=== PATIENT | male | born 1945 | race Caucasian/White ===

== ENCOUNTER 2020-07-06 07:06 | Observation (INO) ==
[2020-07-06] MEDS ORDERED: NITROGLYCERIN 0.4 MG/TAB BTL SL ONE ×2 (07:17→07:18)
[2020-07-06] MEDS ORDERED: NORMAL SALINE 1,000 ML IV ONE (07:17)
--- NOTE | 2020-07-06 07:36 | ERNOTE ---
<Brad Patrick - Last Filed: 07/06/20 07:22> Chest Pain/Cardiac HPI Date of Service: 07/06/20 Time Seen by Provider: 07/06/20 07:08 Source: patient, EMS Exam Limitations: no limitations Immunizations: IMMUNIZATION HX Immunizations Up to Date Yes History of Influenza Vaccine No Hx Pneumococcal Vaccination No Allergies/Adverse Reactions: Allergies Iodinated Contrast Media [Iodinated Contrast Media - IV Dye] Allergy (Mild, Verified 06/24/20 15:19) Hives atorvastatin calcium [From Lipitor] Adverse Reaction (Mild, Verified 06/24/20 15:19) MYALGIAS Home Medications: HOME MEDICATIONS Aspirin [Aspir-Low] 81 mg PO DAILY 09/19/16 [Last Taken 09/27/18] nitroglycerin 0.4 mg sublingual tablet 0.4 mg SL Q5-15M PRN 11/09/17 [Last Taken Unknown] albuterol sulfate 90 mcg/actuation aerosol inhaler 2 inh IH Q4H PRN #18 g 02/06/19 [Last Taken Unknown] allopurinol 300 mg tablet 300 mg PO DAILY #90 tab 12/25/19 [Last Taken Unknown] furosemide 40 mg tablet 40 mg PO DAILY #90 tab 12/25/19 [Last Taken Unknown] levothyroxine 100 mcg tablet 100 mcg PO DAILY #90 tab 12/25/19 [Last Taken Unknown] tadalafil 10 mg tablet 10 mg PO DAILY PRN #10 tab 02/26/20 [Last Taken Unknown] rosuvastatin 20 mg tablet See Rx Instructions .ROUTE .COMPLEX #90 tab 04/15/20 [Last Taken Unknown] Narrative: 74-year-old male woke from sleep with left-sided chest pain radiating to the middle of his back rating to the 7 out of 10 denies any diaphoresis or shortness of breath took a nitroglycerin which is [id number] and had relief of the pain down to 4-5 patient denies any precipitating factors Date (Duration): 07/06/20 Time (Timing): 05:00 Timing: other - Getting better now down to a 4 out of 10 Severity/Quality: moderate Location: substernal Chest Pain Radiation: back Activities at Onset: sleep Modifying Factors - Improves: Present: nitroglycerin, oxygen Modifying Factors - Worsens: Present: exercise Nitro Today/Relief: 0.4 mg x 1, provided by EMS, provided at home, mild relief Aspirin Treatment Today: provided by EMS Associated Symptoms: Present: headache, shortness of breath, diaphoresis, fever/chills Prior Chest Pain/Cardiac Workup: Reports: prior chest pain, other - Stent Review of Systems - Review of Systems Constitutional: Present: no symptoms reported EYE: Present: no symptoms reported ENT: Present: no symptoms reported Respiratory: Present: no symptoms reported Cardiology: Present: chest pain Gastrointestinal/Abdominal: Present: no symptoms reported, nausea, vomiting, eating less Genitourinary: Present: no symptoms reported Musculoskeletal: Present: no symptoms reported Skin: Present: no symptoms reported Neurological: Present: no symptoms reported, dizziness/light-headedness, tingling Endocrine: Present: increased thirst, unexplained weight gain Hematologic/Lymphatic: Present: no symptoms reported All Other Systems: All systems neg except as marked Medical History (Last Reviewed 07/06/20 @ 07:28 by Brad Patrick MD) Hyperlipidemia Onset Date: Unknown Hypothyroidism (acquired) Onset Date: Unknown Obstructive sleep apnea Onset Date: Unknown History of diverticulitis Onset Date: ~2016 Personal history of colonic polyps Onset Date: ~2014 Surgical History: Surgical History (Last Reviewed 07/06/20 @ 07:28 by Brad Patrick MD) History of appendectomy Onset Date: ~1976 History of arthroscopy of left knee Onset Date: 02/27/08 Dr Simms-ACL History of arthroscopy of left shoulder Onset Date: 05/19/00 Dr Simms History of back surgery Onset Date: ~1978 History of carpal tunnel release of both wrists Onset Date: ~1969 History of cholecystectomy Onset Date: ~1987 lap History of colonoscopy Onset Date: 09/28/18 03/28/02 Kannenberg-normal. 06/06/14 Bagan-tubular adenoma x3, hyperplastic polyp x2. Very redundant colon. Recheck 3 yrs. 09/28/18 Bagan-tubular adenoma x2, hyperplastic polyp x2. Extensive diverticulosis. Recheck 5 yrs. History of heart artery stent Onset Date: 01/01/16 [facility] History of hernia repair Onset Date: ~1969 inguinal-does not remember which side History of spinal fusion Onset Date: Unknown Status post epidural steroid injection Onset Date: 08/09/09 C6-7 history of bilateral cubital tunnel release Onset Date: ~1969 Family History: Family History (Last Reviewed 06/24/20 @ 15:19 by Vivian Randhawa CMA) Father , age 70's-[place] Myocardial infarction CAD (coronary artery disease) Mother Heart disease Pacemaker Cancer breast ca Brother Cancer prostate ca Sister , age 7845-qufqyw-amdlbr of type Cancer unsure of type Social History: (Last Updated 06/25/20 @ 12:40 by Mavis Collins MD) Social History: adopted: No chcf: No Marital status: Legally lives independently: No household members: none number of children: 3 number of grandchildren: 7 caregiver/support person: No current occupational status: retired Highest level of school completed/degree received: some college, no degree Service: No Tobacco: Smoking Status: Former smoker Alcohol: alcohol intake: current alcohol intake frequency: a few times a month Substance Use: substance use type: does not use Dietary Habits: caffeine: Yes Personal Safety: victim of physical abuse: No victim of emotional abuse: No Physical Exam - Physical Exam General Appearance: Present: wd/wn, alert, mild distress Head Exam: Present: normal inspection Eye Exam: Normal inspection: bilateral Ears, Nose, Throat: Present: normal ENT inspection Neck: Present: normal inspection Respiratory: Present: no respiratory distress, no accessory muscle use, chest nontender, lungs clear Cardiovascular/Chest: Present: regular rate, rhythm Gastrointestinal/Abdominal: Present: normal bowel sounds, nontender Back Exam: Present: normal inspection Extremity Exam: Present: normal inspection Neurological Exam: Present: alert, oriented Skin Exam: Present: normal color, warm/dry Lymphatic Exam: Present: no adenopathy Progress - Transfer of Care Physician Sign Out: Brad Patrick Receiving Physician: Albert Scott Pending Results: Labs, X-ray results Expected Disposition: Discharge Plan - Plan Plan: Plan is to discharge to home Departure Clinical Impression: Chest pain, Pulmonary nodule - Departure Disposition: Home self-care Condition: Stable Referrals: Mavis Collins MD [Primary Care Provider] - <Albert Scott - Last Filed: 07/06/20 11:26> Chest Pain/Cardiac HPI Immunizations: IMMUNIZATION HX Immunizations Up to Date Yes History of Influenza Vaccine Yes Hx Pneumococcal Vaccination Yes Medical History (Last Reviewed 07/06/20 @ 07:28 by Brad Patrick MD) Hyperlipidemia Onset Date: Unknown Hypothyroidism (acquired) Onset Date: Unknown Obstructive sleep apnea Onset Date: Unknown History of diverticulitis Onset Date: ~2016 Personal history of colonic polyps Onset Date: ~2014 Surgical History: Surgical History (Last Reviewed 07/06/20 @ 07:28 by Brad Patrick MD) History of appendectomy Onset Date: ~1976 History of arthroscopy of left knee Onset Date: 02/27/08 Dr Simms-ACL History of arthroscopy of left shoulder Onset Date: 05/19/00 Dr Simms History of back surgery Onset Date: ~1978 History of carpal tunnel release of both wrists Onset Date: ~1969 History of cholecystectomy Onset Date: ~1987 lap History of colonoscopy Onset Date: 09/28/18 03/28/02 [facility]annenberg-normal. 06/06/14 Bagan-tubular adenoma x3, hyperplastic polyp x2. Very redundant colon. Recheck 3 yrs. 09/28/18 Bagan-tubular adenoma x2, hyperplastic polyp x2. Extensive diverticulosis. Recheck 5 yrs. History of heart artery stent Onset Date: 01/01/16 [facility] History of hernia repair Onset Date: ~1969 inguinal-does not remember which side History of spinal fusion Onset Date: Unknown Status post epidural steroid injection Onset Date: 08/09/09 C6-7 history of bilateral cubital tunnel release Onset Date: ~1969 Family History: Family History (Last Reviewed 06/24/20 @ 15:19 by Vivian Randhawa CMA) Father , age 70's-[place] Myocardial infarction CAD (coronary artery disease) Mother Heart disease Pacemaker Cancer breast ca Brother Cancer prostate ca Sister , age [id number]-zooutd-yxtann of type Cancer unsure of type Social History: (Last Updated 06/25/20 @ 12:40 by Mavis Collins MD) Social History: adopted: No chcf: No Marital status: Legally lives independently: No household members: none number of children: 3 number of grandchildren: 7 caregiver/support person: No current occupational status: retired Highest level of school completed/degree received: some college, no degree Service: No Tobacco: Smoking Status: Former smoker Alcohol: alcohol intake: current alcohol intake frequency: a few times a month Substance Use: substance use type: does not use Dietary Habits: caffeine: Yes Personal Safety: victim of physical abuse: No victim of emotional abuse: No Progress - Date and Time Seen: Date and Time: 07/06/20 09:10 I spoke with the patient about shift change. I confirmed his history. He indicated that he woke up with some pressure in his chest that went through to his back. He may or may not have gotten much relief with the nitroglycerin at home. He had some relief with the nitroglycerin here. He was subsequently given a GI cocktail without relief. His pain has been increasing. There was concern about an aneurysm. He is unfortunately allergic to IV contrast. Initially the D-dimer was ordered but his pain worsened so he will be getting a CT without contrast. He is D-dimer is come back mildly elevated but good for his age. 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 The second EKG looks like the first. The 3-hour troponin was not elevated. He is better with his third dose of morphine. I spoke with Dr. Armijo who agrees to admit the patient. - Results and Orders Patient's Lab Results:: I have reviewed the patient's lab results. Results and Orders: Laboratory Tests 07/06/20 07/06/20 07/06/20 07:20 07:40 07:40 WBC 7.7 RBC 5.07 Hgb 15.0 Hct 46.1 MCV 90.9 MCH 29.6 MCHC 32.5 RDW 14.4 H Plt Count 192 MPV 10.1 Immature Gran % (Auto) 0.40 Immature Gran # (Auto) 0.03 Neutrophils % 54.3 Lymphocytes % 30.5 Monocytes % 9.9 H Eosinophils % 4.4 H Basophils % 0.5 Nucleated RBC % 0.0 Neutrophils # 4.2 Lymphocytes # 2.36 Monocytes # 0.8 Eosinophils # 0.3 Absolute Basophils 0.0 D-Dimer 0.52 H Sodium 140 Plasma Sodium 140 Potassium 3.8 Chloride 105 Carbon Dioxide 27.4 Anion Gap 11.4 BUN 17 Creatinine 1.34 Est GFR (Non-Af Amer) 55 L BUN/Creatinine Ratio 12.7 Random Glucose 107 Calcium 9.1 Calcium Adj for Albumin 9.4 Total Bilirubin 1.1 AST 34 ALT 34 Alkaline Phosphatase 61 Troponin I Less than 0.017 B-Natriuretic Peptide 66 Total Protein 6.3 Albumin 3.2 L Laboratory Tests 07/06/20 10:46 Troponin I Less than 0.017 - Vital Signs Patient's Vital Signs:: I have reviewed the patient's vital signs. Vital Signs: Vital Signs 07/06/20 07:10 07/06/20 07:34 07/06/20 08:00 Temperature 36.7 C Pulse Rate 61 59 L Respiratory Rate 20 14 Blood Pressure 114/56 121/70 O2 Sat by Pulse Oximetry 92 L 94 95 07/06/20 08:20 07/06/20 08:45 Temperature Pulse Rate 56 L 54 L Respiratory Rate 18 19 Blood Pressure 111/55 112/59 O2 Sat by Pulse Oximetry 97 96 - EKG EKG #2 EKG read: Interp. by me EKG Comments: Sinus bradycardia Rate 54 Left axis deviation Nonspecific ST-T wave changes No significant change from the EKG done earlier today. - X-Ray X-Ray #1 X-Ray: chest Interpretation: Reviewed by me X-ray Comments: Chest Single View *~ Exam Date: 07/06/2020 07:34 Ordering Physician: Brad Patrick MD HISTORY: chest pain,hx of covid pneumonia ONE VIEW CHEST Comparison: NONE Technique: A single portable upright AP view of the chest were obtained. Findings: The cardiac silhouette is borderline in size. The mediastinum and hilum are with in normal limits. The lung ritter are clear. I do not see evidence for a definable infiltrate, effusion or pulmonary edema. IMPRESSION: 1. NO ACUTE CARDIOPULMONARY PROCESS. Electronically signed by Smith Ness M.D.. - CT/Ultrasound CT/Ultrasound Narrative: CTA Aorta~ Exam Date: 07/06/2020 09:14 Ordering Physician: Albert Scott MD HISTORY: chest/back pain UNENHANCED CT SCAN OF THE AORTA COMPARISON: Correlation is made with a prior CT scan the abdomen dated 05/28/2016. Technique: Multiple axial CT images were obtained from the pelvic chest down through the abdomen without use of IV or oral contrast. Sagittal and coronal reconstructions were obtained. Mip images were also obtained. The patient was unable to have IV contrast due to a dye allergy. Individualized dose optimization technique was used for the performed procedure including automated exposure control, adjustment of the mA and/or kV according to patient size and/or the iterative reconstruction technique. Findings: I do not see evidence for axillary adenopathy. There are small lymph nodes in the mediastinum without definable adenopathy. I'm not convinced of hilar adenopathy and this unenhanced study. There is moderate to marked coronary artery calcification. The heart is within normal limits of size. I do not see evidence for significant pericardial effusion. The esophagus is grossly normal. There is mild dependent changes in the posterior lung ritter. I do not see evidence for consolidation, effusion, or pneumothorax. There is a 3.8 mm noncalcified nodule in the anterior aspect of the superior segment of the right lower lobe (series 3 image 79), a 6 mm and 4.8 mm nodule in the right middle lobe (series 3 images 81 and 94). The ascending thoracic aorta measures 4 cm and tapers to 3 cm in the arch. The descending thoracic aorta is not dilated. Dissection cannot be excluded on unenhanced study. The liver is homogeneous in appearance for nonenhanced study does not appear to be enlarged. The patient is status post cholecystectomy. The spleen is of normal size and appears homogeneous for nonenhanced study. The adrenal glands are within normal limits. The pancreas is within normal limits for nonenhanced study. A small pancreatic lesion cannot be totally excluded. I do not see eviden ce for retroperitoneal adenopathy or hematoma. The stomach is grossly normal. The small bowel is of normal caliber. The appendix is tentatively identified and appears normal. There are diverticula within the descending colon without definable diverticulitis. The remaining aspects the colon appears unremarkable. The right renal parenchyma is normal in appearance. Again seen is a 10 cm low- density structure involving the mid-upper pole of the left kidney, which is unchanged from 2017. The remaining left renal parenchyma is normal in appearance. I do not see evidence for nonobstructing calculi or pelvocaliectasis. The abdominal aorta demonstrates a normal taper with minimal arteriosclerotic calcification. I do not see evidence for aneurysm or retroperitoneal hematoma. Dissection cannot be excluded unenhanced study. Bone windows demonstrate no definable acute osseous abnormality. There is diffuse disc space narrowing with varying degrees of degenerative spurring in the endplates. I do not see evidence for compression fracture IMPRESSION: 1. 4 CM ASCENDING THORACIC AORTA, WHICH TAPERS TO 3 CM IN THE ARCH. OTHERWISE, THE REMAINING THORACIC AORTA AND ABDOMINAL AORTA ARE NORMAL IN APPEARANCE. NO EVIDENCE FOR ADJACENT HEMATOMA. 2. 3 NONCALCIFIED NODULES IN THE RIGHT LUNG; THE LARGEST MEASURES 6 MM; FOLLOW- UP PER [employer] CRITER[employer]. 3. 10 CM CYST INVOLVING THE MID-UPPER POLE OF THE LEFT KIDNEY, UNCHANGED. [employer] 2017 GUIDELINES FOR MANAGEMENT OF INCIDENTALLY DETECTED PULMONARY NODULES IN ADULTS FOR SOLID NODULES Single Nodule For Low Risk: < 6 mm: No routine follow-up. 6-8 mm: CT at 6-12 months, then consider CT at 18-24 months. > 8 mm: Consider CT, PET CT, or tissue sampling at 3 months. For High Risk: < 6 mm: Optional CT at 12 months, for patient with suspicious nodule morphology, upper lobe location, or both. 6-8 mm: CT at 6-12 months, then consider CT at 18-24 months. > 8 mm: Consider CT, PET CT, or tissue sampling at 3 months. Multiple Nodules (use most suspicious nodule as guide to management) For Low Risk: < 6 mm: No routine follow-up. 6-8 mm: CT at 3-6 months, then consider CT at 18-24 months. > 8 mm: CT at 3-6 months, then consider CT at 18-24 months. For High Risk: < 6 mm: Optional CT at 12 months, for patient with suspicious nodule morphology, upper lobe location, or both. 6-8 mm: CT at 3-6 months, then consider CT at 18-24 months. > 8 mm: CT at 3-6 months, then consider CT at 18-24 months. Note: - Low Risk = young age, less smoking, smaller nodule size, regular margins, and location in an area other than the upper lobe. - High Risk = older age, heavy smoking, larger nodule size, irregular or spiculated margins, and upper lobe location. Presence of emphysema or fibrosis is an independent risk factor for malignancy. Note: These guidelines do NOT apply to patients younger than 35 years, patients undergoing lung cancer screening, patients with immunosuppression, or patients with known or suspected primary cancer. Electronically signed by Smith Ness M.D..
[2020-07-06 07:48] LABS: Hematocrit 46.1 % (42.0-52.0); Mean Cell Volume 90.9 fl (78-100); Mean Corpuscular Hemoglobin 29.6 pg (27-31); Mean Corpuscular Hgb Conc 32.5 g/dl (32-36); Mean Platelet Volume 10.1 fl (8-11.3); Neutrophil # 4.2 K/mm3 (1.3-6.0); Neutrophil % 54.3 % (42-75.0); Platelet Count 192 K/mm3 (150-450); Red Blood Count 5.07 M/mm3 (4.7-6.0); Red Cell Distribution Width 14.4 % (11.5-14.0); White Blood Count 7.7 K/mm3 (4.0-10.5)
[2020-07-06] MEDS ORDERED: LIDOCAINE HCL 15 ML UDC MM ONE (07:59)
[2020-07-06] MEDS ORDERED: MAG HYDROX/ALUMINUM HYD/SIMETH 30 ML UDC PO ONE (07:59)
[2020-07-06 08:06] LABS: ALT 34 U/L (19-67); AST 34 U/L (0-48); Albumin * 3.2 gm/dl (3.4-5.0); Alkaline Phosphatase * 61 U/L (50-170); Anion Gap 11.4 mmol/L (6.8-13.8); BNP * 66 pg/mL (5-350); BUN/Creatinine Ratio 12.7 (9.0-21.6); Bilirubin, Total 1.1 mg/dL (0.0-1.1); Blood Urea Nitrogen 17 mg/dL (6-23); Ca. Corrected For Albumin 9.4 mg/dL (8.4-10.2); Calcium * 9.1 mg/dL (7.9-10.9); Carbon Dioxide 27.4 mmol/L (24-32.6); Chloride 105 mmol/L (97-106); Glucose * 107 mg/dL (70-110); Potassium 3.8 mmol/L (3.4-4.6); Sodium 140 mmol/L (132-142); Total Protein 6.3 gm/dL (6.2-8.2)
[2020-07-06 08:07] LABS: Troponin I Less than 0.017 ng/mL (0.00-0.10)
[2020-07-06] MEDS ORDERED: MORPHINE SULFATE 4 MG/ML SYRG IV ONE ×3 (08:33→10:22)
[2020-07-06] MEDS ORDERED: ONDANSETRON HCL/PF 2 MG/ML VIAL IV ONE (08:33)
[2020-07-06] MEDS ORDERED: NITROGLYCERIN 0.4 MG/TAB BTL SL PRN (12:04)
[2020-07-06] MEDS ORDERED: ALBUTEROL SULFATE 2.5 MG/0.5 ML VIAL.NEB IH PRN (12:04)
[2020-07-06] MEDS: ENOXAPARIN SODIUM 40 MG/0.4 ML SYRG SC SCH (12:43)
[2020-07-06] MEDS ORDERED: ONDANSETRON HCL/PF 2 MG/ML VIAL ONE (14:07)
[2020-07-06] MEDS: ONDANSETRON HCL/PF 2 MG/ML VIAL IV PRN ×2 (14:08→19:04)
--- NOTE | 2020-07-06 18:37 | HP ---
Chief Complaint - Chief Complaint Date of Service: 07/06/20 Time of Service: 18:22 Chief Complaint: Chest pain, history of cardiac stent History of Present Illness: 74-year-old male with medical history of hyperlipidemia, hypothyroidism, obstru ctive sleep apnea, and coronary artery disease with subsequent 1 stent placement roughly 4 years ago presented to the hospital with acute onset chest pain that was noticeably woke this morning. Pain initially was 7 out of 10, took a-year-old nitroglycerin from home which did not improve his pain. Came to the ER where he received another dose of nitroglycerin and he thought it might benefit him some. Initial laboratory work-up unremarkable including 2 - troponin I's. EKG showed nonspecific mild T wave flattening unchanged when repeated twice. 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 Patient back pain persisted and radiated to his back, CTA of the aorta was obtained which did not show any leaking aneurysms or no evidence of adjacent hematoma. Patient was allergic to contrast so and so this was not the best that he. ER physician thought it best that he be observed overnight due to his cardiac history as well as his pain th at radiated to his back. Patient much better in the room this morning aside from some nausea. When reevaluated this evening patient was still having some chest pain that he rated as a 3 out of 10, repeat troponin I ordered. Otherwise his vital signs have been much improved including a regular heart rate that was initially bradycardic and mildly elevated blood pressure. Patient was also requiring oxygen initially but has been since transitioned to room air and is satting 97%. Lovenox was ordered for DVT prophylaxis and cardioprotection. Medical History (Last Reviewed 07/06/20 @ 12:28 by Jarocho Lopez RN) COVID-19 Onset Date: ~05/01/20 Hyperlipidemia Onset Date: Unknown Hypothyroidism (acquired) Onset Date: Unknown Obstructive sleep apnea Onset Date: Unknown History of diverticulitis Onset Date: ~2016 Personal history of colonic polyps Onset Date: ~2014 Surgical History: Surgical History (Last Reviewed 07/06/20 @ 12:28 by Jarocho Lopez RN) History of appendectomy Onset Date: ~1976 History of arthroscopy of left knee Onset Date: 02/27/08 Dr Simms[facility] History of arthroscopy of left shoulder Onset Date: 05/19/00 Dr Simms History of back surgery Onset Date: ~1978 History of carpal tunnel release of both wrists Onset Date: ~1969 History of cholecystectomy Onset Date: ~1987 lap History of colonoscopy Onset Date: 09/28/18 03/28/02 [facility]-normal. 06/06/14 [facility]-tubular adenoma x3, hyperplastic polyp x2. Very redundant colon. Recheck 3 yrs. 09/28/18 Bagan-tubular adenoma x2, hyperplastic polyp x2. Extensive diverticulosis. Recheck 5 yrs. History of heart artery stent Onset Date: 01/01/16 [facility] [place] History of hernia repair Onset Date: ~1969 inguinal-does not remember which side History of spinal fusion Onset Date: Unknown Status post epidural steroid injection Onset Date: 08/09/09 C6-7 history of bilateral cubital tunnel release Onset Date: ~1969 Family History: Family History (Last Reviewed 07/06/20 @ 12:28 by Jarocho Lopez RN) Father , age 70's-CT Myocardial infarction CAD (coronary artery disease) Mother Heart disease Pacemaker Cancer breast ca Brother Cancer prostate ca Sister , age [id number]-scalqu of type Cancer unsure of type Social History: (Last Reviewed 07/06/20 @ 12:28 by Jarocho Lopez RN) Social History: adopted: No intermediate: No Marital status: Legally lives independently: No household members: none number of children: 3 number of grandchildren: 7 caregiver/support person: No current occupational status: retired Highest level of school completed/degree received: some college, no degree Service: No Tobacco: Smoking Status: Former smoker Alcohol: alcohol intake: current alcohol intake frequency: a few times a month Substance Use: substance use type: does not use Dietary Habits: caffeine: Yes Personal Safety: victim of physical abuse: No victim of emotional abuse: No Review Of Systems (GEN) - Review of Systems Generalized/Overall Review: Absent: Weakness, Chills, Fever EENTM: Present: No Symptoms Reported Respiratory: Present: Shortness of Breath. Absent: Cough Cardiac: Present: Chest Pain, Edema - Unchanged, chronic. Absent: Palpitations Abdominal: Present: Nausea. Absent: Vomiting Genitourinary: Present: No Symptoms Reported Musculoskeletal: Present: No Symptoms Reported Neurological: Present: No Symptoms Reported Skin: Present: No Symptoms Reported Endocrine: Present: No Symptoms Reported Immunizations: IMMUNIZATION HX Immunizations Up to Date Yes History of Influenza Vaccine Yes Hx Pneumococcal Vaccination Yes Allergies/Adverse Reactions: Allergies Allergy/AdvReac Type Severity Reaction Status Date / Time Iodinated Contrast Media Allergy Mild Hives Verified 07/06/20 12:27 [Iodinated Contrast Media - IV Dye] atorvastatin calcium AdvReac Mild MYALGIAS Verified 07/06/20 12:27 [From Lipitor] Home Medications: HOME MEDICATIONS Aspirin [Aspir-Low] 81 mg PO DAILY 09/19/16 [Last Taken 09/27/18] nitroglycerin 0.4 mg sublingual tablet 0.4 mg SL Q5-15M PRN 11/09/17 [Last Taken Unknown] albuterol sulfate 90 mcg/actuation aerosol inhaler 2 inh IH Q4H PRN #18 g 02/06/19 [Last Taken Unknown] allopurinol 300 mg tablet 300 mg PO DAILY #90 tab 12/25/19 [Last Taken Unknown] furosemide 40 mg tablet 40 mg PO DAILY #90 tab 12/25/19 [Last Taken Unknown] levothyroxine 100 mcg tablet 100 mcg PO DAILY #90 tab 12/25/19 [Last Taken Unknown] tadalafil 10 mg tablet 10 mg PO DAILY PRN #10 tab 02/26/20 [Last Taken Unknown] rosuvastatin 20 mg tablet See Rx Instructions .ROUTE .COMPLEX #90 tab 04/15/20 [Last Taken Unknown] Exam - Exam Vital Signs: Vital Signs - Last Taken Temp 36.5 C 07/06/20 16:00 Pulse 87 07/06/20 16:00 Resp 18 07/06/20 16:00 BP 127/72 07/06/20 16:00 Pulse Ox 97 07/06/20 16:00 Constitutional: Present: Alert, Oriented x3, Cooperative, Mild distress - Chest pain, Elderly, Obese Eye Exam: bilateral eye: normal inspection, EOMI Neck: Present: non-tender, supple Respiratory: Present: lungs clear, normal breath sounds Cardiovascular/Chest: Present: regular rate, rhythm, no murmur Peripheral Pulses: dorsalis-pedis (R): 2+, dorsalis-pedis (L): 2+ Abdomen: Present: soft, nontender, nondistended Skin Exam: Present: normal color, warm/dry, no cyanosis Neurologic: Present: alert, normal mood/affect, oriented x 3 Appearance: Present: appropriate appearance, appropriate insight Eye contact: Present: cooperative, good eye contact Thoughts: Present: normal thought pattern, normal mood /affect Diagnostic Studies: Abnormal Lab Results 07/06/20 07/06/20 07/06/20 Range/Units 07:20 07:40 07:40 RDW 14.4 H (11.5-14.0) % Monocytes % 9.9 H (0.0-9) % Eosinophils % 4.4 H (0.0-3.0) % D-Dimer 0.52 H (0.19-0.49) ugFEU/mL Est GFR (Non-Af Amer) 55 L (60-130) mL/min Albumin 3.2 L (3.4-5.0) gm/dl Laboratory Results WBC 7.7 K/mm3 (4.0-10.5) 07/06/20 07:40 RBC 5.07 M/mm3 (4.7-6.0) 07/06/20 07:40 Hgb 15.0 gm/dL (13.5-18.0) 07/06/20 07:40 Hct 46.1 % (42.0-52.0) 07/06/20 07:40 MCV 90.9 fl (78-100) 07/06/20 07:40 MCH 29.6 pg (27-31) 07/06/20 07:40 MCHC 32.5 g/dl (32-36) 07/06/20 07:40 RDW 14.4 % (11.5-14.0) H 07/06/20 07:40 Plt Count 192 K/mm3 (150-450) 07/06/20 07:40 MPV 10.1 fl (8-11.3) 07/06/20 07:40 Immature Gran % (Auto) 0.40 % (0.001-0.429) 07/06/20 07:40 Immature Gran # (Auto) 0.03 K/mm3 (0.000-0.0310) 07/06/20 07:40 Neutrophils % 54.3 % (42-75.0) 07/06/20 07:40 Lymphocytes % 30.5 % (20-51) 07/06/20 07:40 Monocytes % 9.9 % (0.0-9) H 07/06/20 07:40 Eosinophils % 4.4 % (0.0-3.0) H 07/06/20 07:40 Basophils % 0.5 % (0.0-1.0) 07/06/20 07:40 Nucleated RBC % 0.0 k/mm3 (0-1) 07/06/20 07:40 Neutrophils # 4.2 K/mm3 (1.3-6.0) 07/06/20 07:40 Lymphocytes # 2.36 k/mm3 (1.5-3.5) 07/06/20 07:40 Monocytes # 0.8 k/mm3 (0.0-1.0) 07/06/20 07:40 Eosinophils # 0.3 k/mm3 (0.0-0.7) 07/06/20 07:40 Absolute Basophils 0.0 k/mm3 (0.0-0.1) 07/06/20 07:40 D-Dimer 0.52 ugFEU/mL (0.19-0.49) H 07/06/20 07:20 Sodium 140 mmol/L (132-142) 07/06/20 07:40 Plasma Sodium 140 mmol/L (130-142) 07/06/20 07:40 Potassium 3.8 mmol/L (3.4-4.6) 07/06/20 07:40 Chloride 105 mmol/L (97-106) 07/06/20 07:40 Carbon Dioxide 27.4 mmol/L (24-32.6) 07/06/20 07:40 Anion Gap 11.4 mmol/L (6.8-13.8) 07/06/20 07:40 BUN 17 mg/dL (6-23) 07/06/20 07:40 Creatinine 1.34 mg/dL (0.4-1.4) 07/06/20 07:40 Est GFR (Non-Af Amer) 55 mL/min (60-130) L 07/06/20 07:40 BUN/Creatinine Ratio 12.7 (9.0-21.6) 07/06/20 07:40 Random Glucose 107 mg/dL (70-110) 07/06/20 07:40 Calcium 9.1 mg/dL (7.9-10.9) 07/06/20 07:40 Calcium Adj for Albumin 9.4 mg/dL (8.4-10.2) 07/06/20 07:40 Total Bilirubin 1.1 mg/dL (0.0-1.1) 07/06/20 07:40 AST 34 U/L (0-48) 07/06/20 07:40 ALT 34 U/L (19-67) 07/06/20 07:40 Alkaline Phosphatase 61 U/L (50-170) 07/06/20 07:40 Troponin I Less than 0.017 ng/mL (0.00-0.10) 07/06/20 10:46 B-Natriuretic Peptide 66 pg/mL (5-350) 07/06/20 07:40 Total Protein 6.3 gm/dL (6.2-8.2) 07/06/20 07:40 Albumin 3.2 gm/dl (3.4-5.0) L 07/06/20 07:40 Assessment/Plan - Narrative Narrative: 74-year-old male with nonspecific chest pain, negative cardiac work-up up-to-date was placed in observation to rule out acute coronary syndrome. Patient initially presented with pain at 7 out of 10 that radiated to his back, negative CT of the aorta though contrast was not used. After this morphine, patient had a significant provement in his pain. Patient was brought over and is been monitored for the last 10 hours and has had no acute events and his vital signs are stable. Upon reexamination patient still having chest pain 3 of 10, will repeat troponin one more time. Pain not improved with GI cocktail. Pain not really improved with nitroglycerin. EKGs and troponins have been negative. Vital signs are stable. Unsure the cause of his pain but will keep him here overnight for further evaluation monitoring. Awaiting repeat troponin to make sure there has been no cardiac injury. Patient is comfortable but states he wants to stay overnight for peace of mind. If his troponin comes back negative then likely he will be a ble to go home tomorrow morning Patient is current medications for his hypothyroidism, hyperlipidemia, hypertension restarted. Zofran ordered for his nausea. Lovenox ordered for DVT prophylaxis. Nurse to call questions or concerns. - Assessment/Plan (1) Hypertension Problem: Acute (2) Hyperlipidemia Problem: Acute (3) Hypothyroidism Problem: Acute (4) CAD (coronary artery disease) Problem: Acute (5) Chest pain Problem: Acute
[2020-07-06] MEDS ORDERED: ROSUVASTATIN CALCIUM 20 MG TABLET PO SCH (21:00)
[2020-07-06] MEDS ORDERED: ACETAMINOPHEN 500 MG TABLET PO ONE (23:15)
[2020-07-07] MEDS ORDERED: LEVOTHYROXINE SODIUM 100 MCG TABLET PO SCH (07:00)
[2020-07-07] MEDS ORDERED: ASPIRIN 81 MG TABLET.DR PO SCH (09:00)
[2020-07-07] MEDS ORDERED: FUROSEMIDE 40 MG TABLET PO SCH (09:00)
[2020-07-07] MEDS ORDERED: ALLOPURINOL 300 MG TABLET PO SCH (09:00)
--- NOTE | 2020-07-07 11:44 | DS ---
(1) CAD (coronary artery disease) Problem: Acute (2) Hypertension Problem: Acute (3) Hyperlipidemia Problem: Acute (4) Hypothyroidism Problem: Acute (5) Chest pain Problem: Acute Date of Discharge:: 07/07/20 Hospital Course: 74-year-old male came to the hospital for chest pain that started that morning. Patient with history of coronary artery disease, stent placed roughly 4 years ago. Recently seen cardiac exercise specialist and was taken off Plavix as he was told he no longer needed to do this. Heart check bedtime was unremarkable. Here he had chest pain that started at around 7 out of 10, did not really resolve with nitroglycerin. Now resolved GI cocktail. He did get some morphine in the ER which made his pain better. Initial work-up showed no specific changes in his EKG for ischemic events. Troponins trended out and were negative x4. Kept overnight just due to history of coronary artery disease and cardiac risk. Vi jamar signs been stable since being here. Patient is feeling much better today and is ready go home with close follow-up with his PCP in the next 2 weeks as well as probably return to see Dr. Arnold in the next month or so. No changes were made to his medications. Patient was stable and will continue his current treatment plan. Patient knows to call the hospital or follow with me in my clinic sooner if any changes in his clinical presentation takes place. 45 minutes spent on patient's discharge summary, treatment plan, dictation note, and med reconciliation. Of note patient did have a CTA of his aorta which did not show any leaking aneurysm or aneurysm of note. This was a checkout received from the ER doctor as well. ER doctor's note does state a leaking aneurysm.I think this is more of a dictation error then will was actually meant to be said. Procedures Performed: none Results and Findings: Lab Pending Results 07/06/20 07:20: D-Dimer 0.52 H 07/06/20 07:40: WBC 7.7, RBC 5.07, Hgb 15.0, Hct 46.1, MCV 90.9, MCH 29.6, MCHC 32.5, RDW 14.4 H, Plt Count 192, MPV 10.1, Immature Gran % (Auto) 0.40, Immature Gran # (Auto) 0.03, Neutrophils % 54.3, Lymphocytes % 30.5, Monocytes % 9.9 H, Eosinophils % 4.4 H, Basophils % 0.5, Nucleated RBC % 0.0, Neutrophils # 4.2, Lymphocytes # 2.36, Monocytes # 0.8, Eosinophils # 0.3, Absolute Basophils 0.0 07/06/20 07:40: Sodium 140, Plasma Sodium 140, Potassium 3.8, Chloride 105, Carbon Dioxide 27.4, Anion Gap 11.4, BUN 17, Creatinine 1.34, Est GFR (Non-Af Amer) 55 L, BUN/Creatinine Ratio 12.7, Random Glucose 107, Calcium 9.1, Calcium Adj for Albumin 9.4, Total Bilirubin 1.1, AST 34, ALT 34, Alkaline Phosphatase 61, Troponin I Less than 0.017, B-Natriuretic Peptide 66, Total Protein 6.3, Albumin 3.2 L 07/06/20 10:46: Troponin I Less than 0.017 07/06/20 18:34: Troponin I Less than 0.017 07/07/20 00:28: Troponin I Less than 0.017 Discharge Location: Home Disposition: Home self-care Condition: Stable Discharge Activity: Activity as tolerated Discharge Diet: Low fat/chol Referrals: Mavis Collins MD [Primary Care Provider] - Two Weeks Complete Home Medications List: Complete Home Medication List: Aspirin [Aspir-Low] 81 mg PO DAILY 09/19/16 nitroglycerin 0.4 mg sublingual tablet 0.4 mg SL Q5-15M PRN 11/09/17 albuterol sulfate 90 mcg/actuation aerosol inhaler 2 inh IH Q4H PRN #18 g 02/06/19 allopurinol 300 mg tablet 300 mg PO DAILY #90 tab 12/25/19 furosemide 40 mg tablet 40 mg PO DAILY #90 tab 12/25/19 levothyroxine 100 mcg tablet 100 mcg PO DAILY #90 tab 12/25/19 tadalafil 10 mg tablet 10 mg PO DAILY PRN #10 tab 02/26/20 rosuvastatin 20 mg tablet See Rx Instructions .ROUTE .COMPLEX #90 tab 04/15/20
[2020-07-07] MEDS: ENOXAPARIN SODIUM 40 MG/0.4 ML SYRG SC SCH (12:51)
[2020-07-07 13:46] VITALS: BP 124/62
== END 2020-07-07 13:35 | disposition home or self-care (01) ==
LOC: MS 07:06 → ER 07:06 → MS 12:05
PROVIDERS: ADMIT Family Medicine; ATTEND Family Medicine